=== PATIENT | male | born 1960 | race Caucasian/White ===

== ENCOUNTER 2024-12-21 18:39 | Inpatient (IN) | payer OTHER ==
[2024-12-21 19:21] LABS: BASOPHILS PERCENT AUTO 0.2 % (0.1-1.3); EOSINOPHILS ABSOLUTE AUTO 0.10 K/uL (0.00-0.40); EOSINOPHILS PERCENT AUTO 1.2 % (0.0-5.4); IMMATURE GRAN ABSOLUTE AUTO 0.03 K/uL (0.00-0.23); IMMATURE GRAN PERCENT AUTO 0.4 % (0.0-0.7); LYMPHOCYTES ABSOLUTE AUTO 1.42 K/uL (0.8-3.3); LYMPHOCYTES PERCENT AUTO 16.7 % (11.4-47.7); MONOCYTES ABSOLUTE AUTO 0.55 K/uL (0.20-0.90); MONOCYTES PERCENT AUTO 6.5 % (3.3-12.6); NEUTROPHILS ABSOLUTE AUTO 6.36 K/uL (1.0-7.6); NEUTROPHILS PERCENT AUTO 75.0 % (40.0-78.1); PLATELET COUNT,PLT 292 K/uL (130-375); RED BLOOD CELL COUNT 5.24 M/uL (4.14-5.76); WHITE BLOOD CELL COUNT,WBC 8.5 K/uL (3.2-11.0)
[2024-12-21 19:22] LABS: BASOPHILS ABSOLUTE AUTO 0.02 K/uL (0.00-0.10)
[2024-12-21 19:45] LABS: A/G RATIO 1.3 (1.2-2.2); ALANINE AMINOTRANSFERASE,ALT 22 U/L (12-78); ASPARTATE AMNIOTRANSFERASE,AST 15 U/L (15-37); BILIRUBIN TOTAL 0.6 mg/dL (0.2-1.0); BLOOD UREA NITROGEN,BUN 29 mg/dL (7-18); CARBON DIOXIDE,CO2 31 mmol/L (21-32); CHLORIDE,CL 105 mmol/L (100-108); CREATININE 1.0 mg/dL (0.8-1.3); EST CRCL DRUG DOSING (CG) 90.37 mL/min; ESTIMATED GFR 85 mL/min (>60); GLUCOSE RANDOM 115 mg/dL (74-106); POTASSIUM,K 4.5 mmol/L (3.6-5.2); PROTEIN TOTAL,TP 7.5 g/dL (6.4-8.2); SODIUM,NA 141 mmol/L (140-148)
[2024-12-21 19:48] LABS: LACTIC ACID 0.8 mmol/L (0.4-2.0)
[2024-12-21] MEDS: Sodium Chloride 0.9% 10 ML Syringe FLUSH ONE (19:55)
[2024-12-21] MEDS: Iopamidol 612 MG/ML 100 ML Bottle IV ONE (19:55)
[2024-12-21] MEDS: Lactated Ringers 1,000 ML IV SCH (23:40)
[2024-12-22] MEDS: Diatrizoate Meglumine/Diatrizoate Sodium 37% 120 ML Bottle PO SCH (10:47)
[2024-12-23] MEDS: Sodium Chloride 0.9% 10 ML Syringe FLUSH PRN (08:02)
[2024-12-23] MEDS: Iopamidol 612 MG/ML 100 ML Bottle IV PRN (08:04)
== END 2024-12-23 14:15 | disposition home or self-care (01) | DRG 395 ==
LOC: JP.ED 18:39 → JP.MS 23:00 → OBSVTOIN 12-22 16:34
PROVIDERS: ADMIT Surgery; ATTEND Surgery
DX: K55.059 Acute (reversible) ischemia of intestine, part and extent unspecified (principal); Z79.899 Other long term (current) drug therapy; Z90.49 Acquired absence of other specified parts of digestive tract; Z86.16 Personal history of COVID-19; Z90.79 Acquired absence of other genital organ(s)
CPT/HCPCS: 36415; 71045; 71045-26; 74177; 74250; 74250-26; 80053; 83605; 85025; 86140; 96360; 96361; 99231; 99283; 99285; A9270-GY; G0378; J7120; Q9967

== ENCOUNTER 2024-12-26 06:52 | Day surgery (SDC) | payer OTHER ==
[2024-12-26] MEDS ORDERED: Glycopyrrolate 0.2 MG/ML 5 ML MDV ONE (07:04)
[2024-12-26] MEDS ORDERED: Succinylcholine 200 MG/10 ML MDV ONE (07:04)
[2024-12-26] MEDS ORDERED: Propofol 200 MG/20 ML SDV ONE (07:04)
[2024-12-26] MEDS ORDERED: Dexamethasone 4 MG/ML SDV ONE (07:04)
[2024-12-26] MEDS ORDERED: Ondansetron 4 MG/2 ML SDV ONE (07:04)
[2024-12-26] MEDS ORDERED: fentaNYL 250 MCG/5 ML SDV ONE (07:05)
[2024-12-26] MEDS: Lactated Ringers 1,000 ML IV SCH (07:33)
[2024-12-26] MEDS: Bupivacaine 0.25%/EPINEPHrine 1:200,000 30 ML SDV ONE (09:00)
[2024-12-26] MEDS ORDERED: Lactated Ringers 1,000 ML ONE (09:06)
[2024-12-26] MEDS ORDERED: fentaNYL 100 MCG/2 ML SDV ONE (09:41)
== END 2024-12-26 13:57 | disposition home or self-care (01) ==
LOC: JP.SDS 06:52
PROVIDERS: ATTEND Surgery
DX: K56.50 Intestinal adhesions [bands], unspecified as to partial versus complete obstruction (principal); Z79.899 Other long term (current) drug therapy
CPT/HCPCS: 44180; 93005; A9270; J0330; J0690; J1100; J1596; J2405; J2704; J2710; J3010; J7120; 00840-QZ; J3490